=== PATIENT | male | born 1945 | race Caucasian/White ===

== ENCOUNTER 2020-05-28 10:49 | Inpatient (IN) | payer MEDICARE, OTHER ==
[~2020-05-28] VITALS: Ht 177.8 cm; Wt 47.9 kg
[2020-05-28 11:44] LABS: Basophils # (auto) 0 10 ^3/uL (0-0.2); Eosinophils # (auto) 0 10 ^3/uL (0-0.8); Eosinophils % (auto) 0.6 % (0.0-7.0); Lymphocytes # (auto) 0.5 10 ^3/uL (0.4-5.4); Mean Corpuscular Volume 102.3 fL (80.0-100.0); Monocytes # (auto) 0.8 10 ^3/uL (0-1.3)
[2020-05-28 11:46] LABS: Basophils % (auto) 0.3 % (0.0-2.0); Hematocrit 47.7 % (41.0-53.0); Hemoglobin 15.4 g/dL (13.5-17.5); Lymphocytes % (auto) 8.8 % (10.0-50.0); Mean Corpuscular Hemoglobin 32.9 pg (28.0-32.0); Mean Corpuscular Hgb Conc. 32.2 g/dL (32.0-36.0); Monocytes % (auto) 14.5 % (0.0-12.0); Neutrophils # (auto) 4.4 10 ^3/uL (1.6-8.6); Neutrophils % (auto) 75.8 % (37.0-80.0); Nucleated Red Blood Cells % 0.8 %; Platelet Count (auto) 198 10^3/uL (140-450); Red Blood Cells 4.66 10^6/uL (4.5-5.90); Red Cell Distribution Width 15.6 % (11.8-14.3); White Blood Cell 5.8 10^3/uL (4.4-10.8)
[2020-05-28] MEDS ORDERED: ETOMIDATE (2MG/ML) 20ML VIAL IV ONE ×2 (12:12→12:15)
[2020-05-28] MEDS ORDERED: SUCCINYLCHOLINE CHLORIDE 20 MG/ML 10ML VIAL IV ONE ×2 (12:13→12:15)
[2020-05-28] MEDS ORDERED: MIDAZOLAM DRIP 50 mg/50mL 50 ML IV ONE (12:22)
[2020-05-28] MEDS: MIDAZOLAM DRIP 50 mg/50mL 50 ML IV SCH ×2 (12:27→22:27)
[2020-05-28 12:38] LABS: Chloride 106 mmol/L (98-107); Potassium 4.5 mmol/L (3.5-5.1); Sodium 143 mmol/L (136-145)
[2020-05-28] MEDS: fentaNYL Drip 2500mCg/250mlNS 250 ML IV SCH (12:43)
[2020-05-28] MEDS: NOREPINEPHRINE 8 MG/250ML KIT 250 ML IV SCH (12:44)
[2020-05-28] MEDS ORDERED: fentaNYL Drip 2500mCg/250mlNS 250 ML IV ONE (12:47)
[2020-05-28 12:48] LABS: Alanine Aminotransferase 21 U/L (16-61); Albumin 2.8 g/dL (3.4-5.0); Alkaline Phosphatase 88 U/L (45-117); Anion Gap 3 (5-15); Aspartate Aminotransferase 27 U/L (15-37); BUN/Creatinine Ratio 45.3; Bilirubin, Total 0.7 mg/dL (0.2-1.0); Blood Alcohol < 3.0 mg/dL (0-5); Blood Urea Nitrogen 29 mg/dL (7-18); Calcium 8.6 mg/dL (8.5-10.1); Carbon Dioxide 34 mmol/L (21-32); GFR African American 157 mL/min; GFR Non-African American 130 mL/min; Glucose 92 mg/dL (74-106); Magnesium 2.5 mg/dL (1.6-2.6); Total Protein 6.2 g/dL (6.4-8.2)
[2020-05-28 13:14] LABS: Urine Bacteria FEW /hpf (None Seen); Urine Blood 1+ /uL (Negative); Urine Hyaline Cast FEW /lpf (0 - 2); Urine Mucus FEW (None Seen); Urine Specific Gravity 1.025 (1.001-1.035); Urine WBC 1 /hpf (0 - 3)
[2020-05-28] MEDS ORDERED: NOREPINEPHRINE 8 MG/250ML KIT 250 ML IV ONE (13:20)
[2020-05-28] MEDS ORDERED: MORPHINE SULF INJ 2 MG/ML SYRINGE 1ML IV PRN ×3 (14:45→17:00)
[2020-05-28] MEDS ORDERED: SODIUM CHLORIDE 0.9% 1,000 ML IV ONE (14:45)
[2020-05-28] MEDS ORDERED: NITROGLYCERIN 0.4 MG SL TAB SL PRN (14:45)
[2020-05-28] MEDS ORDERED: ENOXAPARIN SOD 40 MG/0.4 ML SYRINGE SC ONE (15:00)
[2020-05-28] MEDS ORDERED: ASPirin 81 mg TAB NG ONE (15:00)
[2020-05-28 15:38] VITALS: BP 107/67
[2020-05-28] MEDS ORDERED: CYAN1TAB11 PO (15:57)
[2020-05-28] MEDS ORDERED: MULT-1058 PO (15:57)
[2020-05-28 16:09] VITALS: BP 107/67
[2020-05-28 16:31] VITALS: BP 121/71
[2020-05-28] MEDS ORDERED: PROMETHAZINE HCL 25 MG/ML 1ML IV PRN (17:00)
[2020-05-28] MEDS ORDERED: ACETAMINOPHEN 500 MG TAB PO PRN (17:00)
[2020-05-28] MEDS ORDERED: ALBUTEROL SULF 2.5 MG/0.5ML(0.5%) NEB SOLN NEB PRN (17:00)
[2020-05-28] MEDS ORDERED: DOPamine 1600MCG/ML D5W 250 ML IV ONE (17:15)
[2020-05-28] MEDS: SODIUM CHLORIDE 0.9% 1,000 ML IV SCH (17:48)
[2020-05-28] MEDS: DOPamine 1600MCG/ML D5W 250 ML IV SCH (17:49)
[2020-05-28 18:00] VITALS: BP 116/69
[2020-05-28] MEDS: ALBUTEROL SULF 2.5 MG/0.5ML(0.5%) NEB SOLN NEB SCH (18:48)
[2020-05-28] MEDS: IPRATROPIUM BROM 0.5 MG/2.5ML INH SOL NEB SCH (18:48)
[2020-05-28] MEDS ORDERED: ENOXAPARIN SOD 30 MG/0.3 ML SYRINGE SC ONE (19:00)
[2020-05-28 19:06] LABS: Alcohol, Urine < 3.0 mg/dL (0-10); Amphetamine Screen, Urine NEGATIVE (NEGATIVE); Barbiturate Scree,Urine NEGATIVE (NEGATIVE); Benzodiazephine Screen, Urine NEGATIVE (NEGATIVE); Cannabinoid Screen, Urine NEGATIVE (NEGATIVE); Cocaine Screen, Urine NEGATIVE (NEGATIVE); Opiate Scree,Urine NEGATIVE (NEGATIVE); Phencyclidine Screen, Urine NEGATIVE (NEGATIVE)
[2020-05-28 20:07] VITALS: BP 152/83
[2020-05-28 20:21] LABS: CRP High Sensitivity 1.71 mg/dL (< 0.3)
[2020-05-28] MEDS: ATORVASTATIN 20 MG TAB PO SCH (22:00)
[2020-05-28] MEDS ORDERED: ENOXAPARIN SOD 40 MG/0.4 ML SYRINGE SC SCH (22:00)
[2020-05-29] VITALS (10 sets, daily range): BP systolic 96–164; BP diastolic 42–91
[2020-05-29] MEDS: MIDAZOLAM DRIP 50 mg/50mL 50 ML IV SCH ×2 (01:20→18:27)
[2020-05-29] MEDS: SODIUM CHLORIDE 0.9% 1,000 ML IV SCH ×2 (04:00→06:15)
[2020-05-29] MEDS: ALBUTEROL SULF 2.5 MG/0.5ML(0.5%) NEB SOLN NEB SCH ×4 (06:00→19:12)
[2020-05-29] MEDS ORDERED: ENOXAPARIN SOD 60 MG/0.6 ML SYRINGE SC SCH (06:00)
[2020-05-29] MEDS: IPRATROPIUM BROM 0.5 MG/2.5ML INH SOL NEB SCH ×4 (06:00→19:12)
[2020-05-29 08:21] LABS: Basophils # (auto) 0 10 ^3/uL (0-0.2); Basophils % (auto) 0.4 % (0.0-2.0); Eosinophils # (auto) 0.1 10 ^3/uL (0-0.8); Eosinophils % (auto) 2.1 % (0.0-7.0); Hematocrit 52.6 % (41.0-53.0); Hemoglobin 17.1 g/dL (13.5-17.5); Lymphocytes # (auto) 0.6 10 ^3/uL (0.4-5.4); Lymphocytes % (auto) 8.5 % (10.0-50.0); Mean Corpuscular Hemoglobin 32.9 pg (28.0-32.0); Mean Corpuscular Hgb Conc. 32.5 g/dL (32.0-36.0); Mean Corpuscular Volume 101.1 fL (80.0-100.0); Monocytes # (auto) 0.9 10 ^3/uL (0-1.3); Neutrophils # (auto) 5.4 10 ^3/uL (1.6-8.6); Nucleated Red Blood Cells % 0.3 %; Platelet Count (auto) 225 10^3/uL (140-450); Red Blood Cells 5.21 10^6/uL (4.5-5.90); Red Cell Distribution Width 15.6 % (11.8-14.3)
[2020-05-29 08:50] LABS: Albumin 2.4 g/dL (3.4-5.0); Calcium 7.6 mg/dL (8.5-10.1); Potassium 3.7 mmol/L (3.5-5.1)
[2020-05-29 08:55] LABS: BUN/Creatinine Ratio 31.3; Total Protein 5.8 g/dL (6.4-8.2)
[2020-05-29] MEDS ORDERED: ENOXAPARIN SOD 40 MG/0.4 ML SYRINGE SC SCH (10:00)
[2020-05-29] MEDS: NOREPINEPHRINE 8 MG/250ML KIT 250 ML IV SCH (10:58)
[2020-05-29] MEDS: ASPirin 81 mg TAB PO SCH (11:29)
[2020-05-29] MEDS ORDERED: PIPERACILLIN-TAZOB 3.375GM 100 ML IV ONE (12:30)
[2020-05-29] MEDS ORDERED: VANCOMYCIN PER PHARMACY 0 MG IV SCH (12:30)
[2020-05-29] MEDS: fentaNYL Drip 2500mCg/250mlNS 250 ML IV SCH (12:43)
[2020-05-29] MEDS ORDERED: IOHEXOL 350 MG/ML 100ML IJ ONE (14:33)
[2020-05-29] MEDS: VANCOMYCIN 1GM/250ML 250 ML IV SCH (16:32)
[2020-05-29] MEDS: DOPamine 1600MCG/ML D5W 250 ML IV SCH (17:26)
[2020-05-29] MEDS: PIPERACILLIN-TAZOB 3.375GM 100 ML IV SCH (18:00)
[2020-05-29] MEDS: ATORVASTATIN 20 MG TAB PO SCH (22:00)
[2020-05-30] VITALS (85 sets, daily range): BP systolic 64–169; BP diastolic 32–70
[2020-05-30] MEDS: ALBUTEROL SULF 2.5 MG/0.5ML(0.5%) NEB SOLN NEB SCH ×4 (00:08→18:29)
[2020-05-30] MEDS: IPRATROPIUM BROM 0.5 MG/2.5ML INH SOL NEB SCH ×4 (00:08→18:29)
[2020-05-30] MEDS: MIDAZOLAM DRIP 50 mg/50mL 50 ML IV SCH ×2 (04:27→11:47)
[2020-05-30 04:53] LABS: Basophils # (auto) 0.1 10 ^3/uL (0-0.2); Basophils % (auto) 0.6 % (0.0-2.0); Eosinophils # (auto) 0 10 ^3/uL (0-0.8); Eosinophils % (auto) 0.1 % (0.0-7.0); Hematocrit 52.4 % (41.0-53.0); Hemoglobin 17.7 g/dL (13.5-17.5); Lymphocytes # (auto) 0.4 10 ^3/uL (0.4-5.4); Lymphocytes % (auto) 4.3 % (10.0-50.0); Mean Corpuscular Hgb Conc. 33.7 g/dL (32.0-36.0); Mean Corpuscular Volume 100.9 fL (80.0-100.0); Monocytes # (auto) 1.1 10 ^3/uL (0-1.3); Monocytes % (auto) 11.9 % (0.0-12.0); Neutrophils # (auto) 7.9 10 ^3/uL (1.6-8.6); Neutrophils % (auto) 83.1 % (37.0-80.0); Nucleated Red Blood Cells % 0.2 %; Platelet Count (auto) 251 10^3/uL (140-450); Red Blood Cells 5.19 10^6/uL (4.5-5.90); Red Cell Distribution Width 15.7 % (11.8-14.3); White Blood Cell 9.5 10^3/uL (4.4-10.8)
[2020-05-30 05:13] LABS: Albumin 2.2 g/dL (3.4-5.0); Calcium 7.7 mg/dL (8.5-10.1); Potassium 3.8 mmol/L (3.5-5.1)
[2020-05-30 05:18] LABS: BUN/Creatinine Ratio 21.8; Bilirubin, Total 1.2 mg/dL (0.2-1.0); Total Protein 5.5 g/dL (6.4-8.2)
[2020-05-30] MEDS: PIPERACILLIN-TAZOB 3.375GM 100 ML IV SCH ×4 (06:00→18:47)
[2020-05-30] MEDS: SODIUM CHLORIDE 0.9% 1,000 ML IV SCH ×2 (08:49→22:20)
[2020-05-30] MEDS: NOREPINEPHRINE 8 MG/250ML KIT 250 ML IV SCH ×2 (08:50→09:53)
[2020-05-30] MEDS: ASPirin 81 mg TAB PO SCH (09:29)
[2020-05-30] MEDS: ENOXAPARIN SOD 60 MG/0.6 ML SYRINGE SC SCH ×2 (09:41→22:00)
[2020-05-30] MEDS: fentaNYL Drip 2500mCg/250mlNS 250 ML IV SCH (09:49)
[2020-05-30] MEDS: DOPamine 1600MCG/ML D5W 250 ML IV SCH (11:49)
[2020-05-30] MEDS ORDERED: TPN PER PHARMACY 0 ML IV SCH (12:00)
[2020-05-30 12:18] LABS: Magnesium 2.1 mg/dL (1.6-2.6); Phosphorus 5.1 mg/dL (2.5-4.90)
[2020-05-30 12:21] LABS: Pre Albumin 5.6 mg/dL (20.0-40.0)
[2020-05-30] MEDS: VANCOMYCIN 1GM/250ML 250 ML IV SCH (16:49)
[2020-05-30] MEDS: ACCU-CHEK COMFORT CURVE STRIP VI SCH (17:56)
[2020-05-30] MEDS: InsuLIN REG 1unit/0.01ml Soln (100units/ml) SC SCH (17:56)
[2020-05-30] MEDS ORDERED: DEXTROSE (50%) 50ML SYRG IV SCH (18:00)
[2020-05-30] MEDS ORDERED: TPN PER PHARMACY IV NR ×8 (20:00)
[2020-05-30] MEDS: ATORVASTATIN 20 MG TAB PO SCH (21:59)
[2020-05-31] VITALS (61 sets, daily range): BP systolic 97–147; BP diastolic 39–69
[2020-05-31] MEDS: IPRATROPIUM BROM 0.5 MG/2.5ML INH SOL NEB SCH ×4 (00:15→17:52)
[2020-05-31] MEDS: ALBUTEROL SULF 2.5 MG/0.5ML(0.5%) NEB SOLN NEB SCH ×4 (00:15→17:52)
[2020-05-31] MEDS: InsuLIN REG 1unit/0.01ml Soln (100units/ml) SC SCH ×4 (00:24→18:00)
[2020-05-31] MEDS: ACCU-CHEK COMFORT CURVE STRIP VI SCH ×4 (00:24→18:00)
[2020-05-31] MEDS: MIDAZOLAM DRIP 50 mg/50mL 50 ML IV SCH (00:27)
[2020-05-31] MEDS: PIPERACILLIN-TAZOB 3.375GM 100 ML IV SCH ×4 (00:27→18:00)
[2020-05-31 04:11] LABS: Basophils # (auto) 0 10 ^3/uL (0-0.2); Basophils % (auto) 0.7 % (0.0-2.0); Eosinophils # (auto) 0.1 10 ^3/uL (0-0.8); Eosinophils % (auto) 1.3 % (0.0-7.0); Hematocrit 46.4 % (41.0-53.0); Hemoglobin 15.3 g/dL (13.5-17.5); Lymphocytes # (auto) 0.4 10 ^3/uL (0.4-5.4); Lymphocytes % (auto) 5.9 % (10.0-50.0); Mean Corpuscular Hemoglobin 33.3 pg (28.0-32.0); Mean Corpuscular Volume 100.8 fL (80.0-100.0); Monocytes # (auto) 0.8 10 ^3/uL (0-1.3); Monocytes % (auto) 11.5 % (0.0-12.0); Neutrophils # (auto) 5.4 10 ^3/uL (1.6-8.6); Neutrophils % (auto) 80.6 % (37.0-80.0); Platelet Count (auto) 201 10^3/uL (140-450); Red Cell Distribution Width 15.4 % (11.8-14.3); White Blood Cell 6.7 10^3/uL (4.4-10.8)
[2020-05-31 04:30] LABS: Albumin 1.8 g/dL (3.4-5.0); Calcium 7.2 mg/dL (8.5-10.1)
[2020-05-31 04:38] LABS: BUN/Creatinine Ratio 26.5; Bilirubin, Total 0.8 mg/dL (0.2-1.0); Total Protein 4.9 g/dL (6.4-8.2)
[2020-05-31 04:56] LABS: INR 1.35 (0.9-1.15); Partial Thromboplastin Time 35.6 sec (23.0-31.2)
[2020-05-31] MEDS: POTASSIUM CHL 20MEQ/100ML 100 ML IV SCH ×2 (06:27→08:00)
[2020-05-31] MEDS: ASPirin 81 mg TAB PO SCH (09:55)
[2020-05-31] MEDS ORDERED: POTASSIUM PHOSPHATE 44 MEQ in D5W 5% 250 ML IV ONE (10:00)
[2020-05-31] MEDS ORDERED: IODIXANOL 320MG/ML 100ML BTL IV ONE (10:12)
[2020-05-31] MEDS ORDERED: LIDOCAINE 2%HCL (LOCAL ANESTH.) INJ 20ML MDV ONE (10:12)
[2020-05-31] MEDS ORDERED: ATROPINE SULF 1 MG/10ml SYR ONE (10:25)
[2020-05-31] MEDS ORDERED: SODIUM CHL 0.9% 0 ML ONE (10:26)
[2020-05-31] MEDS ORDERED: EPINEPHrine HCL 1 MG/10 ML SYRG ONE (10:26)
[2020-05-31] MEDS ORDERED: ANGIOMAX 250 MG VIAL IV ONE (10:26)
[2020-05-31] MEDS ORDERED: POTASSIUM PHOSP 22MEQ(15MMOLE) in NS 100 ML IV ONE (11:00)
[2020-05-31] MEDS: SODIUM CHLORIDE 0.9% 1,000 ML IV SCH (11:40)
[2020-05-31] MEDS ORDERED: SODIUM CHLORIDE 0.9% 500 ML IV ONE (15:30)
[2020-05-31] MEDS: VANCOMYCIN 1GM/250ML 250 ML IV SCH (16:00)
[2020-05-31] MEDS ORDERED: TPN PER PHARMACY IV NR ×11 (20:00)
[2020-05-31] MEDS: fentaNYL Drip 2500mCg/250mlNS 250 ML IV SCH (20:25)
[2020-05-31] MEDS: ATORVASTATIN 20 MG TAB PO SCH (22:24)
[2020-06-01] VITALS (89 sets, daily range): BP systolic 82–162; BP diastolic 31–73
[2020-06-01] MEDS: IPRATROPIUM BROM 0.5 MG/2.5ML INH SOL NEB SCH ×4 (00:11→18:07)
[2020-06-01] MEDS: ALBUTEROL SULF 2.5 MG/0.5ML(0.5%) NEB SOLN NEB SCH ×4 (00:11→18:07)
[2020-06-01] MEDS: SODIUM CHLORIDE 0.9% 1,000 ML IV SCH (01:30)
[2020-06-01] MEDS: PIPERACILLIN-TAZOB 3.375GM 100 ML IV SCH ×4 (01:30→18:00)
[2020-06-01] MEDS: InsuLIN REG 1unit/0.01ml Soln (100units/ml) SC SCH ×4 (01:30→16:42)
[2020-06-01] MEDS: ACCU-CHEK COMFORT CURVE STRIP VI SCH ×4 (01:30→16:48)
[2020-06-01 07:05] LABS: Basophils # (auto) 0.1 10 ^3/uL (0-0.2); Eosinophils # (auto) 0.2 10 ^3/uL (0-0.8); Eosinophils % (auto) 3.1 % (0.0-7.0); Hematocrit 45.3 % (41.0-53.0); Lymphocytes # (auto) 0.5 10 ^3/uL (0.4-5.4); Lymphocytes % (auto) 8.3 % (10.0-50.0); Mean Corpuscular Hemoglobin 33.4 pg (28.0-32.0); Mean Corpuscular Volume 101.1 fL (80.0-100.0); Monocytes # (auto) 0.9 10 ^3/uL (0-1.3); Monocytes % (auto) 14.3 % (0.0-12.0); Neutrophils # (auto) 4.6 10 ^3/uL (1.6-8.6); Neutrophils % (auto) 73.3 % (37.0-80.0); Red Blood Cells 4.49 10^6/uL (4.5-5.90); Red Cell Distribution Width 15.3 % (11.8-14.3); White Blood Cell 6.3 10^3/uL (4.4-10.8)
[2020-06-01 07:06] LABS: Platelet Count (auto) 205 10^3/uL (140-450); Potassium 4.4 mmol/L (3.5-5.1)
[2020-06-01] MEDS: fentaNYL Drip 2500mCg/250mlNS 250 ML IV SCH ×2 (07:15→18:42)
[2020-06-01 07:24] LABS: Albumin 1.8 g/dL (3.4-5.0); BUN/Creatinine Ratio 27.1; Bilirubin, Total 0.8 mg/dL (0.2-1.0); Calcium 7.3 mg/dL (8.5-10.1); Phosphorus 2.7 mg/dL (2.5-4.90); Total Protein 5.2 g/dL (6.4-8.2)
[2020-06-01] MEDS: ASPirin 81 mg TAB PO SCH (09:37)
[2020-06-01] MEDS: ENOXAPARIN SOD 60 MG/0.6 ML SYRINGE SC SCH (09:37)
[2020-06-01] MEDS: MIDAZOLAM DRIP 50 mg/50mL 50 ML IV SCH ×2 (10:29→18:44)
[2020-06-01] MEDS: DOPamine 1600MCG/ML D5W 250 ML IV SCH ×2 (10:32→15:08)
[2020-06-01] MEDS: NOREPINEPHRINE 8 MG/250ML KIT 250 ML IV SCH (10:34)
[2020-06-01] MEDS ORDERED: CYANOCOBALAMIN (B-12) 1000 MCG/1 ML VIAL SUBCUT ONE (12:15)
[2020-06-01] MEDS ORDERED: FUROSEMIDE 20 MG/2 ML VIAL IV ONE (12:15)
[2020-06-01] MEDS ORDERED: POTASSIUM EFFERVESENT TAB 25 MEQ GT ONE (12:15)
[2020-06-01] MEDS ORDERED: Jevity 1.2 Cal/Fiber 1 Liter GT SCH (12:15)
[2020-06-01] MEDS ORDERED: methylPREDNISolone SOD SUCC 125 MG/2 ML VL IV ONE (12:15)
[2020-06-01] MEDS ORDERED: FUROSEMIDE 20 MG/2 ML VIAL ONE (12:18)
[2020-06-01] MEDS: BUDESONIDE (INHALATION) 0.5 MG/2 ML NEB NEB SCH (18:07)
[2020-06-01] MEDS ORDERED: TPN PER PHARMACY IV NR ×11 (20:00)
[2020-06-02] VITALS (88 sets, daily range): BP systolic 85–195; BP diastolic 36–94
[2020-06-02] MEDS: InsuLIN REG 1unit/0.01ml Soln (100units/ml) SC SCH ×5 (00:20→23:59)
[2020-06-02] MEDS: IPRATROPIUM BROM 0.5 MG/2.5ML INH SOL NEB SCH ×4 (00:38→18:00)
[2020-06-02] MEDS: ALBUTEROL SULF 2.5 MG/0.5ML(0.5%) NEB SOLN NEB SCH ×4 (00:38→18:00)
[2020-06-02] MEDS: ACCU-CHEK COMFORT CURVE STRIP VI SCH ×5 (06:00→23:58)
[2020-06-02] MEDS: PIPERACILLIN-TAZOB 3.375GM 100 ML IV SCH ×5 (06:00→23:58)
[2020-06-02] MEDS: BUDESONIDE (INHALATION) 0.5 MG/2 ML NEB NEB SCH ×2 (06:39→22:37)
[2020-06-02 07:17] LABS: Basophils # (auto) 0 10 ^3/uL (0-0.2); Basophils % (auto) 0.3 % (0.0-2.0); Eosinophils # (auto) 0 10 ^3/uL (0-0.8); Hematocrit 48.1 % (41.0-53.0); Hemoglobin 15.9 g/dL (13.5-17.5); Lymphocytes # (auto) 0.4 10 ^3/uL (0.4-5.4); Lymphocytes % (auto) 8.3 % (10.0-50.0); Mean Corpuscular Hemoglobin 33.2 pg (28.0-32.0); Mean Corpuscular Volume 100.8 fL (80.0-100.0); Monocytes # (auto) 0.1 10 ^3/uL (0-1.3); Monocytes % (auto) 2.9 % (0.0-12.0); Neutrophils # (auto) 3.9 10 ^3/uL (1.6-8.6); Neutrophils % (auto) 88.5 % (37.0-80.0); Nucleated Red Blood Cells % 0.1 %; Platelet Count (auto) 240 10^3/uL (140-450); Red Blood Cells 4.77 10^6/uL (4.5-5.90); Red Cell Distribution Width 15.8 % (11.8-14.3); White Blood Cell 4.4 10^3/uL (4.4-10.8)
[2020-06-02 07:35] LABS: BUN/Creatinine Ratio 32.8; Calcium 8.2 mg/dL (8.5-10.1); Potassium 4.8 mmol/L (3.5-5.1)
[2020-06-02] MEDS: MIDAZOLAM DRIP 50 mg/50mL 50 ML IV SCH (08:07)
[2020-06-02] MEDS: DOPamine 1600MCG/ML D5W 250 ML IV SCH (08:23)
[2020-06-02] MEDS ORDERED: CYANOCOBALAMIN (B-12) 1000 MCG/1 ML VIAL SUBCUT SCH (10:00)
[2020-06-02] MEDS: methylPREDNISolone SOD SUCC 125 MG/2 ML VL IV SCH ×3 (10:27→21:50)
[2020-06-02] MEDS: ASPirin 81 mg TAB PO SCH (10:28)
[2020-06-02] MEDS: ENOXAPARIN SOD 60 MG/0.6 ML SYRINGE SC SCH ×3 (10:28→21:51)
[2020-06-02] MEDS ORDERED: POTASSIUM EFFERVESENT TAB 25 MEQ GT ONE (12:15)
[2020-06-02] MEDS ORDERED: FUROSEMIDE 20 MG/2 ML VIAL IV ONE (12:15)
[2020-06-02] MEDS ORDERED: FAMOTIDINE (10MG/ML) 2ML VL IV ONE (12:15)
[2020-06-02] MEDS: fentaNYL Drip 2500mCg/250mlNS 250 ML IV SCH (12:43)
[2020-06-02] MEDS: LORazepam 2MG/ML-1ML VIAL IV PRN (21:30)
[2020-06-02] MEDS: ATORVASTATIN 20 MG TAB PO SCH ×2 (21:50)
[2020-06-03] VITALS (105 sets, daily range): BP systolic 75–168; BP diastolic 23–84
[2020-06-03] MEDS: fentaNYL Drip 2500mCg/250mlNS 250 ML IV SCH (01:05)
[2020-06-03 04:04] LABS: Basophils # (auto) 0 10 ^3/uL (0-0.2); Basophils % (auto) 0.3 % (0.0-2.0); Eosinophils # (auto) 0 10 ^3/uL (0-0.8); Hematocrit 48.2 % (41.0-53.0); Lymphocytes # (auto) 0.3 10 ^3/uL (0.4-5.4); Lymphocytes % (auto) 3.8 % (10.0-50.0); Mean Corpuscular Hemoglobin 32.9 pg (28.0-32.0); Mean Corpuscular Hgb Conc. 33.2 g/dL (32.0-36.0); Mean Corpuscular Volume 98.9 fL (80.0-100.0); Monocytes # (auto) 0.2 10 ^3/uL (0-1.3); Monocytes % (auto) 2.5 % (0.0-12.0); Neutrophils # (auto) 6.9 10 ^3/uL (1.6-8.6); Neutrophils % (auto) 93.4 % (37.0-80.0); Platelet Count (auto) 276 10^3/uL (140-450); Red Blood Cells 4.88 10^6/uL (4.5-5.90); White Blood Cell 7.4 10^3/uL (4.4-10.8)
[2020-06-03 04:26] LABS: Calcium 8.6 mg/dL (8.5-10.1); Potassium 3.3 mmol/L (3.5-5.1)
[2020-06-03 04:30] LABS: BUN/Creatinine Ratio 36.5
[2020-06-03] MEDS: InsuLIN REG 1unit/0.01ml Soln (100units/ml) SC SCH ×3 (06:00→17:19)
[2020-06-03] MEDS: ACCU-CHEK COMFORT CURVE STRIP VI SCH ×3 (06:00→17:19)
[2020-06-03] MEDS: DOPamine 1600MCG/ML D5W 250 ML IV SCH (06:05)
[2020-06-03] MEDS: PIPERACILLIN-TAZOB 3.375GM 100 ML IV SCH ×3 (06:21→17:44)
[2020-06-03] MEDS: BUDESONIDE (INHALATION) 0.5 MG/2 ML NEB NEB SCH ×2 (07:16→18:33)
[2020-06-03] MEDS: IPRATROPIUM BROM 0.5 MG/2.5ML INH SOL NEB SCH ×5 (07:16→23:54)
[2020-06-03] MEDS: ALBUTEROL SULF 2.5 MG/0.5ML(0.5%) NEB SOLN NEB SCH ×5 (07:17→23:54)
[2020-06-03] MEDS: FAMOTIDINE (10MG/ML) 2ML VL IV SCH (09:25)
[2020-06-03] MEDS: methylPREDNISolone SOD SUCC 125 MG/2 ML VL IV SCH ×2 (09:25→22:00)
[2020-06-03] MEDS: ASPirin 81 mg TAB PO SCH (09:25)
[2020-06-03] MEDS: ENOXAPARIN SOD 60 MG/0.6 ML SYRINGE SC SCH ×2 (09:25→22:00)
[2020-06-03] MEDS: CYANOCOBALAMIN (B-12) 1000 MCG/1 ML VIAL SUBCUT SCH (09:26)
[2020-06-03] MEDS ORDERED: POTASSIUM EFFERVESENT TAB 25 MEQ GT ONE (11:30)
[2020-06-03] MEDS ORDERED: FUROSEMIDE 20 MG/2 ML VIAL IV ONE (11:30)
[2020-06-03] MEDS: ATORVASTATIN 20 MG TAB PO SCH (22:00)
[2020-06-04] VITALS (100 sets, daily range): BP systolic 69–152; BP diastolic 31–107
[2020-06-04] MEDS: LORazepam 2MG/ML-1ML VIAL IV PRN ×2 (02:07→22:28)
[2020-06-04 04:48] LABS: Basophils # (auto) 0 10 ^3/uL (0-0.2); Basophils % (auto) 0.2 % (0.0-2.0); Eosinophils # (auto) 0 10 ^3/uL (0-0.8); Hematocrit 46.3 % (41.0-53.0); Hemoglobin 15.1 g/dL (13.5-17.5); Lymphocytes # (auto) 0.2 10 ^3/uL (0.4-5.4); Lymphocytes % (auto) 2.4 % (10.0-50.0); Mean Corpuscular Hemoglobin 32.6 pg (28.0-32.0); Mean Corpuscular Hgb Conc. 32.6 g/dL (32.0-36.0); Mean Corpuscular Volume 99.8 fL (80.0-100.0); Monocytes # (auto) 0.3 10 ^3/uL (0-1.3); Monocytes % (auto) 3.5 % (0.0-12.0); Neutrophils # (auto) 8.4 10 ^3/uL (1.6-8.6); Neutrophils % (auto) 93.9 % (37.0-80.0); Platelet Count (auto) 288 10^3/uL (140-450); Red Blood Cells 4.64 10^6/uL (4.5-5.90); Red Cell Distribution Width 14.9 % (11.8-14.3); White Blood Cell 8.9 10^3/uL (4.4-10.8)
[2020-06-04 05:22] LABS: BUN/Creatinine Ratio 33.3; Calcium 8.2 mg/dL (8.5-10.1); Potassium 3.1 mmol/L (3.5-5.1)
[2020-06-04] MEDS: ACCU-CHEK COMFORT CURVE STRIP VI SCH ×4 (06:00→18:13)
[2020-06-04] MEDS: PIPERACILLIN-TAZOB 3.375GM 100 ML IV SCH ×5 (06:00→23:40)
[2020-06-04] MEDS: InsuLIN REG 1unit/0.01ml Soln (100units/ml) SC SCH ×4 (06:00→18:00)
[2020-06-04] MEDS: BUDESONIDE (INHALATION) 0.5 MG/2 ML NEB NEB SCH ×2 (06:13→18:19)
[2020-06-04] MEDS: ALBUTEROL SULF 2.5 MG/0.5ML(0.5%) NEB SOLN NEB SCH ×3 (06:13→18:18)
[2020-06-04] MEDS: IPRATROPIUM BROM 0.5 MG/2.5ML INH SOL NEB SCH ×3 (06:13→18:19)
[2020-06-04] MEDS: methylPREDNISolone SOD SUCC 125 MG/2 ML VL IV SCH ×2 (09:26→21:52)
[2020-06-04] MEDS: FAMOTIDINE (10MG/ML) 2ML VL IV SCH (09:26)
[2020-06-04] MEDS: ASPirin 81 mg TAB PO SCH (09:26)
[2020-06-04] MEDS: ENOXAPARIN SOD 60 MG/0.6 ML SYRINGE SC SCH (09:26)
[2020-06-04] MEDS: CYANOCOBALAMIN (B-12) 1000 MCG/1 ML VIAL SUBCUT SCH (09:26)
[2020-06-04] MEDS ORDERED: POTASSIUM CHLORIDE 60 MEQ, LIDOCAINE 1% (LOCAL ANESTH.) 6 ML in SODIUM CHL 0.9% 500 ML IV ONE (09:45)
[2020-06-04] MEDS ORDERED: POTASSIUM CHL 20MEQ/100ML 300 ML IV ONE (09:53)
[2020-06-04] MEDS: POTASSIUM CHL 20MEQ/100ML 100 ML IV SCH ×3 (09:53→14:48)
[2020-06-04] MEDS: fentaNYL Drip 2500mCg/250mlNS 250 ML IV SCH (12:43)
[2020-06-04] MEDS: DOPamine 1600MCG/ML D5W 250 ML IV SCH (15:00)
[2020-06-04] MEDS: ATORVASTATIN 20 MG TAB PO SCH (21:52)
[2020-06-05] VITALS (96 sets, daily range): BP systolic 75–156; BP diastolic 38–133
[2020-06-05] MEDS: ACCU-CHEK COMFORT CURVE STRIP VI SCH ×5 (00:16→23:52)
[2020-06-05] MEDS: ALBUTEROL SULF 2.5 MG/0.5ML(0.5%) NEB SOLN NEB SCH ×4 (00:36→19:05)
[2020-06-05] MEDS: IPRATROPIUM BROM 0.5 MG/2.5ML INH SOL NEB SCH ×4 (00:36→19:05)
[2020-06-05] MEDS: DOPamine 1600MCG/ML D5W 250 ML IV SCH (02:49)
[2020-06-05 04:18] LABS: Basophils # (auto) 0 10 ^3/uL (0-0.2); Basophils % (auto) 0.3 % (0.0-2.0); Eosinophils # (auto) 0 10 ^3/uL (0-0.8); Lymphocytes # (auto) 0.2 10 ^3/uL (0.4-5.4); Lymphocytes % (auto) 1.7 % (10.0-50.0); Mean Corpuscular Hgb Conc. 33.3 g/dL (32.0-36.0); Mean Corpuscular Volume 99.2 fL (80.0-100.0); Monocytes # (auto) 0.5 10 ^3/uL (0-1.3); Monocytes % (auto) 4.7 % (0.0-12.0); Neutrophils # (auto) 10.6 10 ^3/uL (1.6-8.6); Neutrophils % (auto) 93.3 % (37.0-80.0); Platelet Count (auto) 302 10^3/uL (140-450); Red Blood Cells 4.84 10^6/uL (4.5-5.90); Red Cell Distribution Width 14.8 % (11.8-14.3); White Blood Cell 11.3 10^3/uL (4.4-10.8)
[2020-06-05 04:44] LABS: BUN/Creatinine Ratio 28.3; Calcium 8.7 mg/dL (8.5-10.1); Phosphorus 1.8 mg/dL (2.5-4.90)
[2020-06-05] MEDS: InsuLIN REG 1unit/0.01ml Soln (100units/ml) SC SCH ×5 (05:54→23:53)
[2020-06-05] MEDS: PIPERACILLIN-TAZOB 3.375GM 100 ML IV SCH ×4 (05:54→23:37)
[2020-06-05] MEDS: BUDESONIDE (INHALATION) 0.5 MG/2 ML NEB NEB SCH ×2 (06:46→19:05)
[2020-06-05] MEDS ORDERED: POTASSIUM PHOSPHATE 26.4 MEQ in SODIUM CHL 0.9% 100 ML IV ONE (08:00)
[2020-06-05] MEDS: POTASSIUM CHL 20MEQ/100ML 100 ML IV SCH ×3 (08:34→12:14)
[2020-06-05] MEDS ORDERED: ALBUMIN 25% 50 ML IV ONE (09:00)
[2020-06-05] MEDS ORDERED: MIDODRINE HCL 10 MG TAB PO ONE (09:00)
[2020-06-05] MEDS: MIDODRINE HCL 10 MG TAB PO SCH ×3 (09:34→18:17)
[2020-06-05] MEDS: ASPirin 81 mg TAB PO SCH (09:35)
[2020-06-05] MEDS: methylPREDNISolone SOD SUCC 125 MG/2 ML VL IV SCH ×2 (09:36→21:52)
[2020-06-05] MEDS: FAMOTIDINE (10MG/ML) 2ML VL IV SCH (09:36)
[2020-06-05] MEDS: ENOXAPARIN SOD 40 MG/0.4 ML SYRINGE SC SCH (09:38)
[2020-06-05] MEDS: FUROSEMIDE 40 MG/4 ML VIAL IV SCH (10:43)
[2020-06-05] MEDS: fentaNYL Drip 2500mCg/250mlNS 250 ML IV SCH (12:43)
[2020-06-05] MEDS: ATORVASTATIN 20 MG TAB PO SCH (21:53)
[2020-06-06] VITALS (94 sets, daily range): BP systolic 64–134; BP diastolic 40–83
[2020-06-06] MEDS: ALBUTEROL SULF 2.5 MG/0.5ML(0.5%) NEB SOLN NEB SCH ×4 (00:30→18:41)
[2020-06-06] MEDS: IPRATROPIUM BROM 0.5 MG/2.5ML INH SOL NEB SCH ×4 (00:30→18:42)
[2020-06-06] MEDS: ACCU-CHEK COMFORT CURVE STRIP VI SCH ×3 (06:00→18:25)
[2020-06-06] MEDS: InsuLIN REG 1unit/0.01ml Soln (100units/ml) SC SCH ×3 (06:00→18:33)
[2020-06-06] MEDS: PIPERACILLIN-TAZOB 3.375GM 100 ML IV SCH ×3 (06:00→18:21)
[2020-06-06] MEDS: MIDODRINE HCL 10 MG TAB PO SCH ×3 (06:00→18:21)
[2020-06-06] MEDS: BUDESONIDE (INHALATION) 0.5 MG/2 ML NEB NEB SCH ×2 (06:11→18:42)
[2020-06-06] MEDS: FUROSEMIDE 40 MG/4 ML VIAL IV SCH (10:00)
[2020-06-06] MEDS: methylPREDNISolone SOD SUCC 125 MG/2 ML VL IV SCH ×2 (10:03→21:57)
[2020-06-06] MEDS: ASPirin 81 mg TAB PO SCH (10:03)
[2020-06-06] MEDS: FAMOTIDINE (10MG/ML) 2ML VL IV SCH (10:03)
[2020-06-06] MEDS: ENOXAPARIN SOD 40 MG/0.4 ML SYRINGE SC SCH (10:03)
[2020-06-06] MEDS: DOPamine 1600MCG/ML D5W 250 ML IV SCH (12:22)
[2020-06-06] MEDS: fentaNYL Drip 2500mCg/250mlNS 250 ML IV SCH (12:43)
[2020-06-06] MEDS: LORazepam 2MG/ML-1ML VIAL IV PRN (20:30)
[2020-06-06] MEDS: ATORVASTATIN 20 MG TAB PO SCH (21:57)
[2020-06-07] VITALS (78 sets, daily range): BP systolic 55–116; BP diastolic 29–75
[2020-06-07] MEDS: ALBUTEROL SULF 2.5 MG/0.5ML(0.5%) NEB SOLN NEB SCH ×4 (00:10→18:26)
[2020-06-07] MEDS: IPRATROPIUM BROM 0.5 MG/2.5ML INH SOL NEB SCH ×4 (00:10→18:26)
[2020-06-07] MEDS: ACCU-CHEK COMFORT CURVE STRIP VI SCH ×4 (00:22→18:35)
[2020-06-07] MEDS: PIPERACILLIN-TAZOB 3.375GM 100 ML IV SCH ×5 (00:22→18:32)
[2020-06-07] MEDS: InsuLIN REG 1unit/0.01ml Soln (100units/ml) SC SCH ×4 (00:30→18:33)
[2020-06-07] MEDS: DOPamine 1600MCG/ML D5W 250 ML IV SCH (04:18)
[2020-06-07] MEDS: MIDODRINE HCL 10 MG TAB PO SCH ×3 (06:06→18:32)
[2020-06-07 07:12] LABS: Hematocrit 37.7 % (41.0-53.0); Hemoglobin 12.4 g/dL (13.5-17.5); Mean Corpuscular Hemoglobin 33.1 pg (28.0-32.0); Mean Corpuscular Volume 100.2 fL (80.0-100.0); Platelet Count (auto) 290 10^3/uL (140-450); Red Blood Cells 3.76 10^6/uL (4.5-5.90); Red Cell Distribution Width 14.6 % (11.8-14.3); White Blood Cell 14.4 10^3/uL (4.4-10.8)
[2020-06-07 07:17] LABS: Band Neutrophils % (manual) 0; Basophils % (manual) 0 (0.0-2.0); Blast Cells 0; Eosinophils % (manual) 0 (0-7); Metamyelocytes % 0; Myelocytes % 0; Promyelocytes % 0; Reactive Lymphocytes 0
[2020-06-07 07:34] LABS: Potassium 3.5 mmol/L (3.5-5.1)
[2020-06-07 07:40] LABS: Albumin 2.6 g/dL (3.4-5.0); BUN/Creatinine Ratio 26.5; Bilirubin, Total 1.2 mg/dL (0.2-1.0); Calcium 8.8 mg/dL (8.5-10.1); Total Protein 5.9 g/dL (6.4-8.2)
[2020-06-07 07:52] LABS: Magnesium 2.2 mg/dL (1.6-2.6); Phosphorus 3.4 mg/dL (2.5-4.90)
[2020-06-07 08:02] LABS: Lymphocytes % (manual) 2 (10.0-50.0); Monocytes % (manual) 6 (0-12)
[2020-06-07] MEDS ORDERED: SODIUM CHLORIDE 0.9% 500 ML IV ONE ×2 (10:15→12:00)
[2020-06-07] MEDS ORDERED: SODIUM CHLORIDE 0.9% 1,450 ML IV ONE (10:15)
[2020-06-07] MEDS: FAMOTIDINE (10MG/ML) 2ML VL IV SCH (11:17)
[2020-06-07] MEDS: FUROSEMIDE 40 MG/4 ML VIAL IV SCH (11:17)
[2020-06-07] MEDS: ASPirin 81 mg TAB PO SCH (11:17)
[2020-06-07] MEDS: methylPREDNISolone SOD SUCC 125 MG/2 ML VL IV SCH ×2 (11:17→21:53)
[2020-06-07] MEDS: SODIUM CHLORIDE 0.9% 1,000 ML IV SCH ×2 (11:18→21:51)
[2020-06-07] MEDS: ENOXAPARIN SOD 40 MG/0.4 ML SYRINGE SC SCH (11:18)
[2020-06-07] MEDS: BUDESONIDE (INHALATION) 0.5 MG/2 ML NEB NEB SCH ×2 (12:00→18:26)
[2020-06-07] MEDS: fentaNYL Drip 2500mCg/250mlNS 250 ML IV SCH (12:36)
[2020-06-07] MEDS ORDERED: ALBUMIN 5% 250 ML IV ONE ×2 (21:15→21:38)
[2020-06-07] MEDS: ATORVASTATIN 20 MG TAB PO SCH (21:53)
[2020-06-08] VITALS (91 sets, daily range): BP systolic 89–151; BP diastolic 31–111
[2020-06-08] MEDS: ACCU-CHEK COMFORT CURVE STRIP VI SCH ×4 (00:06→18:11)
[2020-06-08] MEDS: PIPERACILLIN-TAZOB 3.375GM 100 ML IV SCH ×4 (00:07→18:19)
[2020-06-08] MEDS: ALBUTEROL SULF 2.5 MG/0.5ML(0.5%) NEB SOLN NEB SCH ×4 (00:23→18:46)
[2020-06-08] MEDS: IPRATROPIUM BROM 0.5 MG/2.5ML INH SOL NEB SCH ×4 (00:23→18:46)
[2020-06-08] MEDS: LORazepam 2MG/ML-1ML VIAL IV PRN (04:35)
[2020-06-08 05:07] LABS: BUN/Creatinine Ratio 22.2; Calcium 8.3 mg/dL (8.5-10.1); Potassium 3.9 mmol/L (3.5-5.1)
[2020-06-08 05:43] LABS: Basophils # (auto) 0 10 ^3/uL (0-0.2); Basophils % (auto) 0.1 % (0.0-2.0); Eosinophils # (auto) 0 10 ^3/uL (0-0.8); Hematocrit 26.1 % (41.0-53.0); Lymphocytes # (auto) 0.3 10 ^3/uL (0.4-5.4); Lymphocytes % (auto) 1.9 % (10.0-50.0); Mean Corpuscular Hemoglobin 33.1 pg (28.0-32.0); Mean Corpuscular Hgb Conc. 32.9 g/dL (32.0-36.0); Mean Corpuscular Volume 100.5 fL (80.0-100.0); Monocytes % (auto) 5.9 % (0.0-12.0); Neutrophils # (auto) 14.9 10 ^3/uL (1.6-8.6); Neutrophils % (auto) 92.1 % (37.0-80.0); Platelet Count (auto) 230 10^3/uL (140-450); Red Cell Distribution Width 14.7 % (11.8-14.3); White Blood Cell 16.2 10^3/uL (4.4-10.8)
[2020-06-08 05:44] LABS: Hemoglobin 8.6 g/dL (13.5-17.5)
[2020-06-08] MEDS: MIDODRINE HCL 10 MG TAB PO SCH ×3 (06:00→18:19)
[2020-06-08] MEDS: InsuLIN REG 1unit/0.01ml Soln (100units/ml) SC SCH ×4 (06:30→18:00)
[2020-06-08] MEDS: DOPamine 1600MCG/ML D5W 250 ML IV SCH ×3 (09:01→20:23)
[2020-06-08] MEDS ORDERED: LORazepam 2MG/ML-1ML VIAL IV PRN (10:15)
[2020-06-08] MEDS: ASPirin 81 mg TAB PO SCH (10:52)
[2020-06-08] MEDS: FAMOTIDINE (10MG/ML) 2ML VL IV SCH (10:52)
[2020-06-08] MEDS: SODIUM CHLORIDE 0.9% 1,000 ML IV SCH (10:52)
[2020-06-08] MEDS: ENOXAPARIN SOD 40 MG/0.4 ML SYRINGE SC SCH (10:52)
[2020-06-08] MEDS: BUDESONIDE (INHALATION) 0.5 MG/2 ML NEB NEB SCH ×2 (10:53→18:46)
[2020-06-08] MEDS: methylPREDNISolone SOD SUCC 40 MG/ML VL IV SCH (21:39)
[2020-06-09] VITALS (89 sets, daily range): BP systolic 79–147; BP diastolic 32–97
[2020-06-09] MEDS: SODIUM CHLORIDE 0.9% 1,000 ML IV SCH ×4 (02:15→22:15)
[2020-06-09 04:35] LABS: Basophils # (auto) 0 10 ^3/uL (0-0.2); Basophils % (auto) 0.2 % (0.0-2.0); Eosinophils # (auto) 0 10 ^3/uL (0-0.8); Hemoglobin 8.2 g/dL (13.5-17.5); Lymphocytes # (auto) 0.1 10 ^3/uL (0.4-5.4); Mean Corpuscular Hemoglobin 32.9 pg (28.0-32.0); Mean Corpuscular Hgb Conc. 33.3 g/dL (32.0-36.0); Mean Corpuscular Volume 98.8 fL (80.0-100.0)
[2020-06-09 04:37] LABS: Hematocrit 24.7 % (41.0-53.0); Lymphocytes % (auto) 0.9 % (10.0-50.0); Monocytes # (auto) 0.5 10 ^3/uL (0-1.3); Monocytes % (auto) 3.4 % (0.0-12.0); Neutrophils # (auto) 14.4 10 ^3/uL (1.6-8.6); Neutrophils % (auto) 95.5 % (37.0-80.0); Platelet Count (auto) 229 10^3/uL (140-450); Red Cell Distribution Width 14.4 % (11.8-14.3); White Blood Cell 15.1 10^3/uL (4.4-10.8)
[2020-06-09 04:55] LABS: BUN/Creatinine Ratio 22.6; Calcium 8.1 mg/dL (8.5-10.1)
[2020-06-09 05:00] LABS: Potassium 2.9 mmol/L (3.5-5.1)
[2020-06-09] MEDS: PIPERACILLIN-TAZOB 3.375GM 100 ML IV SCH ×4 (05:33→17:28)
[2020-06-09] MEDS: ACCU-CHEK COMFORT CURVE STRIP VI SCH ×4 (05:39→17:28)
[2020-06-09] MEDS: InsuLIN REG 1unit/0.01ml Soln (100units/ml) SC SCH ×4 (05:39→17:34)
[2020-06-09] MEDS: MIDODRINE HCL 10 MG TAB PO SCH ×2 (05:46→11:08)
[2020-06-09] MEDS: ALBUTEROL SULF 2.5 MG/0.5ML(0.5%) NEB SOLN NEB SCH ×5 (06:23→23:43)
[2020-06-09] MEDS: IPRATROPIUM BROM 0.5 MG/2.5ML INH SOL NEB SCH ×5 (06:23→23:43)
[2020-06-09] MEDS: BUDESONIDE (INHALATION) 0.5 MG/2 ML NEB NEB SCH ×2 (06:24→18:28)
[2020-06-09] MEDS ORDERED: POTASSIUM CHL 20MEQ/100ML 100 ML IV ONE ×2 (06:30→12:30)
[2020-06-09] MEDS: DOPamine 1600MCG/ML D5W 250 ML IV SCH ×3 (07:00→23:00)
[2020-06-09] MEDS: ENOXAPARIN SOD 40 MG/0.4 ML SYRINGE SC SCH (09:08)
[2020-06-09] MEDS: FAMOTIDINE (10MG/ML) 2ML VL IV SCH (09:08)
[2020-06-09] MEDS: methylPREDNISolone SOD SUCC 40 MG/ML VL IV SCH ×2 (09:08→22:26)
[2020-06-09] MEDS ORDERED: POTASSIUM EFFERVESENT TAB 25 MEQ PO ONE (12:30)
[2020-06-10] VITALS (84 sets, daily range): BP systolic 79–147; BP diastolic 25–117
[2020-06-10] MEDS: ACCU-CHEK COMFORT CURVE STRIP VI SCH ×5 (00:03→23:52)
[2020-06-10] MEDS: PIPERACILLIN-TAZOB 3.375GM 100 ML IV SCH ×2 (00:03→06:43)
[2020-06-10 03:53] LABS: Basophils # (auto) 0 10 ^3/uL (0-0.2); Eosinophils # (auto) 0 10 ^3/uL (0-0.8); Hematocrit 23.4 % (41.0-53.0); Lymphocytes # (auto) 0.1 10 ^3/uL (0.4-5.4); Monocytes # (auto) 0.4 10 ^3/uL (0-1.3)
[2020-06-10 03:54] LABS: Basophils % (auto) 0.1 % (0.0-2.0); Hemoglobin 7.9 g/dL (13.5-17.5); Mean Corpuscular Hemoglobin 33.3 pg (28.0-32.0); Mean Corpuscular Hgb Conc. 33.6 g/dL (32.0-36.0); Mean Corpuscular Volume 99.2 fL (80.0-100.0); Monocytes % (auto) 3.8 % (0.0-12.0); Neutrophils # (auto) 10.9 10 ^3/uL (1.6-8.6); Neutrophils % (auto) 95.1 % (37.0-80.0); Nucleated Red Blood Cells % 0.1 %; Platelet Count (auto) 236 10^3/uL (140-450); Red Blood Cells 2.36 10^6/uL (4.5-5.90); Red Cell Distribution Width 14.7 % (11.8-14.3); White Blood Cell 11.5 10^3/uL (4.4-10.8)
[2020-06-10 04:06] LABS: BUN/Creatinine Ratio 23.2; Calcium 8.1 mg/dL (8.5-10.1); Potassium 3.2 mmol/L (3.5-5.1)
[2020-06-10] MEDS: InsuLIN REG 1unit/0.01ml Soln (100units/ml) SC SCH ×5 (06:00→23:51)
[2020-06-10] MEDS: POTASSIUM CHL 20 Meq TABLET PO ONE ×2 (06:30→06:47)
[2020-06-10] MEDS: IPRATROPIUM BROM 0.5 MG/2.5ML INH SOL NEB SCH ×4 (06:56→18:23)
[2020-06-10] MEDS: ALBUTEROL SULF 2.5 MG/0.5ML(0.5%) NEB SOLN NEB SCH ×4 (06:56→18:23)
[2020-06-10] MEDS: BUDESONIDE (INHALATION) 0.5 MG/2 ML NEB NEB SCH ×3 (06:57→18:24)
[2020-06-10] MEDS: SODIUM CHLORIDE 0.9% 1,000 ML IV SCH ×2 (08:15→14:03)
[2020-06-10] MEDS: methylPREDNISolone SOD SUCC 40 MG/ML VL IV SCH (09:25)
[2020-06-10] MEDS: ENOXAPARIN SOD 40 MG/0.4 ML SYRINGE SC SCH (09:25)
[2020-06-10] MEDS: FAMOTIDINE (10MG/ML) 2ML VL IV SCH (09:26)
[2020-06-10] MEDS ORDERED: POTASSIUM CHL 10 Meq TABLET PO ONE (12:45)
[2020-06-11] VITALS (37 sets, daily range): BP systolic 87–149; BP diastolic 20–80
[2020-06-11] MEDS: IPRATROPIUM BROM 0.5 MG/2.5ML INH SOL NEB SCH ×3 (00:10→11:40)
[2020-06-11] MEDS: ALBUTEROL SULF 2.5 MG/0.5ML(0.5%) NEB SOLN NEB SCH ×3 (00:10→11:40)
[2020-06-11 04:26] LABS: BUN/Creatinine Ratio 23.3; Calcium 8.3 mg/dL (8.5-10.1); Potassium 3.7 mmol/L (3.5-5.1)
[2020-06-11] MEDS: InsuLIN REG 1unit/0.01ml Soln (100units/ml) SC SCH ×2 (05:47→11:18)
[2020-06-11] MEDS: ACCU-CHEK COMFORT CURVE STRIP VI SCH ×2 (05:47→11:19)
[2020-06-11] MEDS: SODIUM CHLORIDE 0.9% 1,000 ML IV SCH ×2 (05:48→15:25)
[2020-06-11] MEDS: BUDESONIDE (INHALATION) 0.5 MG/2 ML NEB NEB SCH (06:40)
[2020-06-11] MEDS: FAMOTIDINE (10MG/ML) 2ML VL IV SCH (09:11)
[2020-06-11] MEDS ORDERED: predniSONE 20 MG TAB PO SCH (10:00)
[2020-06-11] MEDS ORDERED: levoFLOXacin 500MG 100 ML IV SCH (10:00)
[2020-06-11] MEDS: DOPamine 1600MCG/ML D5W 250 ML IV SCH (15:00)
== END 2020-06-11 18:48 | disposition hospice, home (50) | DRG 870 ==
LOC: ER 10:49 → EDBD 10:49 → OVERFLOW 10:50 → ICU WEST 05-29 18:39 → DOU IN ICU 06-07 09:03
PROVIDERS: ADMIT Internal Medicine; ATTEND Internal Medicine
PROC: 5A1955Z Respiratory Ventilation, Greater than 96 Consecutive Hours (ICD-10-PCS; principal; 2020-05-28)
PROC: 0BH17EZ Insertion of Endotracheal Airway into Trachea, Via Natural or Artificial Opening (ICD-10-PCS; 2020-05-28)
PROC: 02HV33Z Insertion of Infusion Device into Superior Vena Cava, Percutaneous Approach (ICD-10-PCS; 2020-05-28)
PROC: 4A023N7 Measurement of Cardiac Sampling and Pressure, Left Heart, Percutaneous Approach (ICD-10-PCS; 2020-05-31)
PROC: B211YZZ Fluoroscopy of Multiple Coronary Arteries using Other Contrast (ICD-10-PCS; 2020-05-31)
PROC: B215YZZ Fluoroscopy of Left Heart using Other Contrast (ICD-10-PCS; 2020-05-31)
DX: A41.9 Sepsis, unspecified organism (principal); I50.43 Acute on chronic combined systolic (congestive) and diastolic (congestive) heart failure; I21.4 Non-ST elevation (NSTEMI) myocardial infarction; G92 Toxic encephalopathy; J96.01 Acute respiratory failure with hypoxia; N17.0 Acute kidney failure with tubular necrosis; E43 Unspecified severe protein-calorie malnutrition; R65.21 Severe sepsis with septic shock; J69.0 Pneumonitis due to inhalation of food and vomit; E87.1 Hypo-osmolality and hyponatremia; M48.54XA Collapsed vertebra, not elsewhere classified, thoracic region, initial encounter for fracture; Z68.1 Body mass index [BMI] 19.9 or less, adult; J44.1 Chronic obstructive pulmonary disease with (acute) exacerbation; J44.0 Chronic obstructive pulmonary disease with (acute) lower respiratory infection; N18.9 Chronic kidney disease, unspecified; E87.6 Hypokalemia; I25.10 Atherosclerotic heart disease of native coronary artery without angina pectoris; Z51.5 Encounter for palliative care; Z66 Do not resuscitate; L89.151 Pressure ulcer of sacral region, stage 1; L89.220 Pressure ulcer of left hip, unstageable; Z20.828 Contact with and (suspected) exposure to other viral communicable diseases; Z74.01 Bed confinement status; Z87.891 Personal history of nicotine dependence
CPT/HCPCS: 31500; 36415; 36600; 51702; 70450; 71045; 71275; 80048; 80053; 80061; 80307; 80320; 81001; 82040; 82550; 82607; 82805; 82947; 82962; 83036; 83605; 83735; 83880; 84100; 84443; 84484; 85007; 85025; 85027; 85379; 85610; 85652; 85730; 86141; 87040; 87070; 87081; 87205; 87426; 93005; 93306; 93458; 93970; 94002; 94003; 94640; 94660; 97110; 97530; 99152; 99291; G0378; J0330; J1815; J1956; J2250; J2543; J3480; J3490; J7131; Q9967